=== PATIENT | female | born 1980 | race American Indian/Alaskan Native ===

== ENCOUNTER 2021-11-13 18:35 | Emergency (ER) | payer MEDICAID ==
[2021-11-13 19:05] VITALS: BP 136/103
--- NOTE | 2021-11-13 21:16 | XRay Report ---
CHEST 2 VIEWS INDICATION / CLINICAL INFORMATION: Chest pain. Dizziness. COMPARISON: None available. FINDINGS: SUPPORT DEVICES: None. HEART / MEDIASTINUM: No significant abnormality. LUNGS / PLEURA: No significant pulmonary abnormality. No significant pleural effusion. No pneumothora x. ADDITIONAL FINDINGS: No significant additional findings. IMPRESSION: 1. No acute abnormality of the chest. Signer Name: Wayne Myers MD Signed: 11/13/2021 9:11 PM Workstation Name: [id number]
[2021-11-13] MEDS ORDERED: SODIUM CHLORIDE 0.9% 1000 ML 1,000 ML IV ONE (21:41)
[2021-11-13 21:55] LABS: Basophils % (Auto) 0.5 % (0.0-1.8); Eosinophils # (Auto) 0.2 K/mm3 (0.0-0.4); Eosinophils % (Auto) 2.9 % (0.0-4.3); Hematocrit 29.4 % (30.3-42.9); Hemoglobin 9.4 gm/dl (10.1-14.3); Lymphocytes # (Auto) 1.7 K/mm3 (1.2-5.4); Lymphocytes % (Auto) 29.5 % (13.4-35.0); Mean Corpuscular HGB Conc 32 % (30-34); Mean Corpuscular Volume 84 fl (79-97); Monocytes # (Auto) 0.5 K/mm3 (0.0-0.8); Monocytes % (Auto) 7.9 % (0.0-7.3); Platelet Count 360 K/mm3 (140-440); Red Cell Distribution Width 15.1 % (13.2-15.2)
[2021-11-13 22:25] LABS: Alanine Aminotransferase 10 units/L (7-56); Albumin 4.1 g/dL (3.9-5); Blood Urea Nitrogen 9 mg/dL (7-17); Calcium 8.8 mg/dL (8.4-10.2); Hemolysis Index 1
[2021-11-13 22:38] LABS: BUN/Creatinine Ratio 13
--- NOTE | 2021-11-14 00:25 | Ultrasound Report ---
Ultrasound of the pelvis INDICATION: Acute onset vaginal bleeding FINDINGS: The uterus measures 13 x 5 x 6 cm. Endometrial thickness is normal at about 12 mm. Both ova agata appear normal. No significant free pelvic fluid. There is normal Doppler flow to both ovaries. IMPRESSION: No acute findings. Signer Name: Fransisco Alas MD Signed: 11/14/2021 12:21 AM Workstation Name: [id number]
--- NOTE | 2021-11-14 00:44 | Emergency Department Report ---
ED General Adult HPI - General Chief complaint: Chest Pain Stated complaint: DIZZINESS/EXCESSIVE BLEEDING Time Seen by Provider: 11/14/21 00:39 Source: patient Mode of arrival: Ambulatory Limitations: No Limitations - History of Present Illness Initial comments: Patient 41-year-old female who presents for vaginal bleeding states excessive for the past 3 days. Patient has history of dysmenorrhea, anemia chronic disease, hypertension. Patient denies fevers or chills does endorse intermittent dizziness. States she is on [id number] control for cycle control however pending follow-up with [employer]. Patient states symptoms are exacerbated by nothing tried. Symptoms are relieved by nothing tried. States using 10 pads daily. Patient is on iron therapy for anemia. Severity scale (0 -10): 7 - Related Data Home Medications Medication Instructions Recorded Confirmed Last Taken Fluticasone/Salmeterol [Advair 1 puff IH BID 10/20/15 02/22/16 10/19/15 23:00 Diskus 250-50 mcg] Previous Rx's Medication Instructions Recorded Last Taken Type Albuterol Sulfate [Ventolin HFA] 2 puff IH Q4H PRN #1 hfa.aer.ad 01/18/15 Unknown Rx Pnv,Calcium 72/Iron/Folic Acid 1 each PO QDAY #30 tablet 07/01/15 02/12/16 20:00 Rx [ Vitamin with Low Iron] Ibuprofen [Motrin 800 MG tab] 800 mg PO Q8HR PRN #30 tablet 11/14/21 Unknown Rx medroxyPROGESTERone ACETATE 10 mg PO QDAY 7 Days #7 tab 11/14/21 Unknown Rx [Provera] Allergies Allergy/AdvReac Type Severity Reaction Status Date / Time cephalexin monohydrate Allergy Rash Verified 07/01/15 13:35 [From Keflex] ED Review of Systems ROS: Stated complaint: DIZZINESS/EXCESSIVE BLEEDING Other details as noted in HPI Constitutional: malaise. denies: chills, fever Eyes: denies: eye pain, eye discharge, vision change ENT: denies: ear pain, throat pain Respiratory: denies: cough, shortness of breath, wheezing Cardiovascular: denies: chest pain, palpitations Endocrine: no symptoms reported Gastrointestinal: denies: abdominal pain, nausea, vomiting, diarrhea Genitourinary: abnormal menses. denies: urgency, dysuria, frequency, hematuria, discharge Musculoskeletal: denies: back pain, joint swelling, arthralgia Skin: denies: rash, lesions Neurological: denies: headache, weakness, paresthesias Psychiatric: denies: anxiety, depression Hematological/Lymphatic: denies: easy bleeding, easy bruising ED Past Medical Hx - Past Medical History Previous Medical History?: Yes Hx Hypertension: No Hx Diabetes: No Hx Deep Vein Thrombosis: No Hx Renal Disease: No Hx Sickle Cell Disease: No Hx Arthritis: Yes Hx Seizures: No Hx Asthma: Yes Hx COPD: No Hx HIV: No - Surgical History Past Surgical History?: Yes Hx Appendectomy: Yes Additional Surgical History: RIGHT HIP SURGERY X 2. - Social History Smoking Status: Never Smoker - Medications Home Medications: Home Medications Medication Instructions Recorded Confirmed Last Taken Type Albuterol Sulfate [Ventolin HFA] 2 puff IH Q4H PRN #1 hfa.aer.ad 01/18/15 02/22/16 Unknown Rx Pnv,Calcium 72/Iron/Folic Acid 1 each PO QDAY #30 tablet 07/01/15 02/22/16 02/12/16 20:00 Rx [ Vitamin with Low Iron] Fluticasone/Salmeterol [Advair 1 puff IH BID 10/20/15 02/22/16 10/19/15 23:00 History Diskus 250-50 mcg] Ibuprofen [Motrin 800 MG tab] 800 mg PO Q8HR PRN #30 tablet 11/14/21 Unknown Rx medroxyPROGESTERone ACETATE 10 mg PO QDAY 7 Days #7 tab 11/14/21 Unknown Rx [Provera] ED Physical Exam - General Limitations: No Limitations General appearance: alert, in no apparent distress - Head Head exam: Present: normocephalic, normal inspection - Eye Eye exam: Present: normal appearance, PERRL, EOMI Pupils: Present: normal accommodation - ENT ENT exam: Present: mucous membranes moist - Neck Neck exam: Present: normal inspection, full ROM. Absent: tenderness - Respiratory Respiratory exam: Present: normal lung sounds bilaterally. Absent: respiratory distress, wheezes, stridor, chest wall tenderness - Cardiovascular Cardiovascular Exam: Present: regular rate, normal rhythm, normal heart sounds. Absent: systolic murmur, diastolic murmur, rubs, gallop - GI/Abdominal GI/Abdominal exam: Present: soft, normal bowel sounds. Absent: distended, tenderness, guarding, rebound, rigid, bruit, hernia - Rectal Rectal exam: Present: deferred - Extremities Exam Extremities exam: Present: normal inspection, full ROM, normal capillary refill. Absent: tenderness - Back Exam Back exam: Present: normal inspection, full ROM. Absent: CVA tenderness (R), CVA tenderness (L) - Neurological Exam Neurological exam: Present: alert, oriented X3, CN II-XII intact, normal gait - Expanded Neurological Exam Expanded Patient oriented to: Present: person, place, time Speech: Present: fluid speech Motor strength exam: RUE: 5, LUE: 5, RLE: 5, LLE: 5 Best Eye Response (Langdon): (4) open spontaneously Best Motor Response ([place]): (6) obeys commands Best Verbal Response (Eva): (5) oriented Eva Total: 15 - Psychiatric Psychiatric exam: Present: normal affect, normal mood - Skin Skin exam: Present: warm, dry, intact, normal color. Absent: rash ED Course Vital Signs 11/13/21 19:03 Temperature 98.3 F Pulse Rate 117 H Respiratory 22 Rate Blood Pressure 136/103 [Right] O2 Sat by Pulse 100 Oximetry ED Medical Decision Making - Lab Data Result diagrams: 11/13/21 21:17 11/13/21 21:17 Labs 11/13/21 11/13/21 11/13/21 21:17 21:17 22:51 WBC 5.8 RBC 3.50 L Hgb 9.4 L Hct 29.4 L MCV 84 MCH 27 L MCHC 32 RDW 15.1 Plt Count 360 Lymph % (Auto) 29.5 [place] % (Auto) 7.9 H Eos % (Auto) 2.9 Baso % (Auto) 0.5 Lymph # (Auto) 1.7 [place] # (Auto) 0.5 Eos # (Auto) 0.2 Baso # (Auto) 0.0 Seg Neutrophils % 59.2 Seg Neutrophils # 3.4 Sodium 141 Potassium 4.3 Chloride 106.5 Carbon Dioxide 25 Anion Gap 14 BUN 9 Creatinine 0.7 Estimated GFR > 60 BUN/Creatinine Ratio 13 Glucose 110 H Calcium 8.8 Total Bilirubin < 0.20 AST 11 ALT 10 Alkaline Phosphatase 65 Troponin T < 0.010 < 0.010 Total Protein 6.6 Albumin 4.1 Albumin/Globulin Ratio 1.6 HCG, Quant 11/13/21 22:51 WBC RBC Hgb Hct MCV MCH MCHC RDW Plt Count Lymph % (Auto) [place] % (Auto) Eos % (Auto) Baso % (Auto) Lymph # (Auto) [place] # (Auto) Eos # (Auto) Baso # (Auto) Seg Neutrophils % Seg Neutrophils # Sodium Potassium Chloride Carbon Dioxide Anion Gap BUN Creatinine Estimated GFR BUN/Creatinine Ratio Glucose Calcium Total Bilirubin AST ALT Alkaline Phosphatase Troponin T Total Protein Albumin Albumin/Globulin Ratio HCG, Quant < 2 - EKG Data EKG shows normal: sinus rhythm, axis, intervals, QRS complexes, ST-T waves Rate: normal - EKG Data When compared to previous EKG there are: previous EKG unavailable Interpretation: normal EKG (Normal sinus rhythm no ST elevated NH intervals are normal heart rate is normal this is a normal EKG interpreted by ED attending.) - Radiology Data Radiology results: report reviewed, image reviewed CHEST 2 VIEWS INDICATION / CLINICAL INFORMATION: Chest pain. Dizziness. COMPARISON: None available. FINDINGS: SUPPORT DEVICES: None. HEART / MEDIASTINUM: No significant abnormality. LUNGS / PLEURA: No significant pulmonary abnormality. No significant pleural effusion. No pneumothorax. ADDITIONAL FINDINGS: No significant additional findings. IMPRESSION: 1. No acute abnormality of the chest. Signer Name: Wayne Myers MD Signed: 11/13/2021 9:11 PM Workstation Name: [id number] Transcribed By: [place] Dictated By: Wayne Myers MD Electronically Authenticated By: Wayne Myers MD Signed Date/Time: 11/13/212110 DD/ 10 TD/TT: Ultrasound of the pelvis INDICATION: Acute onset vaginal bleeding FINDINGS: The uterus measures 13 x 5 x 6 cm. Endometrial thickness is normal at about 12 mm. Both ovaries appear normal. No significant free pelvic fluid. There is normal Doppler flow to both ovaries. IMPRESSION: No acute findings. Signer Name: Fransisco Alas MD Signed: 11/14/2021 12:21 AM Workstation Name: [id number] Transcribed By: BC Dictated By: Fransisco Alas MD Electronically Authenticated By: Fransisco Alas MD Signed Date/Time: 11/14/2120 DD/ TD/TT: - Medical Decision Making EKG normal sinus rhythm no ST elevated NH in interpreted by ED attending, chest x-ray no opacities no infiltrates normal chest x-ray, ultrasound pelvis no abnormalities, no fibroids no ovarian cyst. Patient defers [employer] exam to [employer] follow-up. Labs noted H&H is stable plan DC to home with prescriptions. Follow-up with [facility] tomorrow. Patient verbalized agreement and understanding with discharge plan. Patient DC'd home in stable condition at this time. Repeat vital signs are normal. Critical care attestation.: If time is entered above; I have spent that time in minutes in the direct care of this critically ill patient, excluding procedure time. ED Disposition Clinical Impression: Abnormal uterine bleeding (AUB) Disposition: HOME / SELF CARE / HOMELESS Is pt being admited?: No Does the pt Need Aspirin: No Condition: Stable Instructions: Abnormal Uterine Bleeding Additional Instructions: Follow-up with your [employer] doctor tomorrow. Take medications as prescribed. Return to emergency department should symptoms worsen. Prescriptions: Ibuprofen [Motrin 800 MG tab] 800 mg PO Q8HR PRN #30 tablet PRN Reason: Pain medroxyPROGESTERone ACETATE [Provera] 10 mg PO QDAY 7 Days #7 tab Referrals: NIRMAL ORELLANA MD [Staff Physician] - 3-5 Days Forms: Work/School Release Form(ED) Time of Disposition: 00:49
--- NOTE | 2021-11-15 20:04 | Electrocardiograph Report ---
[facility] Test Date: 2021-11-13 Test Time: 19:16:09 Pat Name: MAGNO OSPINA Department: Room: Gender: F Public Information Relations Manager: RODERICK : 1980 Requested By: PERLA DE LUNA Order Number: [id number] Reading MD: Earlene Molina Measurements Intervals [place] Rate: 102 P: 45 MA: 160 QRS: 59 QRSD: 82 T: -2 QT: 345 QTc: 450 Interpretive Statements Sinus tachycardia No previous ECG available for comparison Electronically Signed On 11-15-2021 20:03:32 EDT by Earlene Molina
== END 2021-11-14 01:03 | disposition home or self-care (01) ==
LOC: ED 18:35
DX: N93.9 Abnormal uterine and vaginal bleeding, unspecified (principal); J45.909 Unspecified asthma, uncomplicated; M19.90 Unspecified osteoarthritis, unspecified site; Z98.890 Other specified postprocedural states; Z79.899 Other long term (current) drug therapy; Z91.09 Other allergy status, other than to drugs and biological substances
CPT/HCPCS: 36415; 71046; 76856; 80053; 84484; 84702; 85025; 93005; 96360; 99284; J7030; Q0162